=== PATIENT | male | born 1995 | race African-American/Black ===

== ENCOUNTER 2019-04-14 05:40 | Emergency (ER) | payer SELFPAY ==
[~2019-04-14] VITALS: Ht 172.7 cm; Wt 74.8 kg
--- NOTE | 2019-04-14 05:45 | NUR ---
ED Nurse Note: Patient was BIBA 829 c/o generalized body pain elizabeth bilateral feet. Pt stated 10/10 pain. Pt is becoming for aggitated and not answering questions cooperately. AAO x4, VSS at this time.
[2019-04-14 05:46] VITALS: BP 128/74
[2019-04-14] MEDS ORDERED: IBUPROFEN600 MG ORAL (05:47)
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
[2019-04-14 05:57] VITALS: BP 125/75
--- NOTE | 2019-04-14 06:02 | NUR ---
ED Nurse Note: Pt cleared by health care Provider for discharge. DC instructions/prescription was given and explained to pt and verbalized understanding of teachings. All medical deviecs such as ID band removed. Pt is AAO x4, ambulatory and left with all personal belongings.
== END 2019-04-14 06:07 | disposition home or self-care (01) ==
LOC: EDBD 05:40 → EMR 05:53
DX: M79.10 Myalgia, unspecified site (principal)
CPT/HCPCS: 99282